=== PATIENT | female | born 2000 | race Caucasian/White ===

== ENCOUNTER 2019-06-24 13:13 | Emergency (ER) | payer OTHER ==
[~2019-06-24] VITALS: Ht 170.2 cm; Wt 61.4 kg
[2019-06-24 14:04] LABS: COLLECTION METHOD CLEAN CATCH
[2019-06-24 14:14] LABS: MUCOUS Present /lpf; PH 7 (5-8); SQUAMOUS EPITHELIAL 0-2 /hpf; URINE APPEARANCE Clear; URINE BACTERIA None Seen /hpf; URINE BILIRUBIN Negative (NEGATIVE); URINE BLOOD Negative (NEGATIVE); URINE COLOR Yellow; URINE GLUCOSE Negative (NEGATIVE); URINE KETONE Negative (NEGATIVE); URINE LEUKOCYTE ESTERASE Negative (NEGATIVE); URINE NITRATE Negative (NEGATIVE); URINE PROTEIN(semi-quant) Negative (NEGATIVE); URINE RBC 0-2 /hpf; URINE UROBILINOGEN >=4.0 mg/dL (NEGATIVE)
[2019-06-24] MEDS ORDERED: FLEXERIL 1010 MG/TAB PO (14:38)
[2019-06-24] MEDS ORDERED: LIDODERM 5% PATC1 EA TP (14:38)
[2019-06-24 14:43] VITALS: BP 110/82; PULSE 65; TEMP 98.4
== END 2019-06-24 14:44 | disposition home or self-care (01) ==
LOC: COL.ER 13:13
PROVIDERS: Physician Assistant
DX: M54.5 Low back pain (principal)